=== PATIENT | male | born 1995 | race Caucasian/White ===

== ENCOUNTER 2017-10-07 12:37 | Emergency (ER) | payer SELFPAY ==
[2017-10-07 12:38] VITALS: BP 121/92; PULSE 90; RESP 16; TEMP 37.2; O2SAT 99; BMI 24.3
--- NOTE | 2017-10-07 14:43 | ED.DCSUM_ITS ---
- ER Visit Summary Date of Service: 10/07/17 Chief Complaint: Poison rain History of Present Illness: The patient is a 21 M he states he does not know when he gotten poison rain but he body and he itches. He states he wants the shot and does not want any of that antibiotic crap that we give. Physical Examination: Afebrile vital signs are stable. Patient has a faint rash on his arms and abdomen consistent with rhus dermatitis though he tells me he has it severely on his back I see no rash on the back Emergency Department Course and Treatment: Patient will be given a dose of Kenalog. He does not wish to hear any of the science. He does not wish to understand or hear anything other than what he thinks is the correct medical treatment. He will be discharged. Patient states that we are bunch of fucks because he is not getting the steroid shot that he got last year that lasts the entire year. It is the same medicine we looked that up. Impression: 1. Poison rain This note was generated with [employer] dictation software. It may contain incorrect words, spelling, and punctuation that were not noted in review of the chart prior to signing ED Disposition - Plan for ED Patient: Disposition: Home or Assisted Living Chief Complaint: Rash Instructions: ED Dermatitis Poison Rain Referrals: Care Physician,No Primary [Primary Care Provider] - Additional Instructions: The oils from poison rain last up to 12-14 days. The shot that you are requesting does not last that long. There is a high likelihood of the rash coming back and yes the oils can still be transmitted to your son no matter what treatment you get because the shot only mediates the immune response not removes the oils. So keep you son away from your rash. Antibiotics are not effective and they are not used in the treatment of poison rain since it is an allergic condition not a bacterial infection. There is no difference in effectiveness between oral steroids and the shot.
--- NOTE | 2017-10-07 14:57 | ED.RN ---
PT STATES HE ONLY WANTS THE SHOT THAT LASTS ONE FULL YEAR. ATTEMPTED TO EXPLAIN TO PT THAT THAT SHOT DOES NOT EXIST. PT BECOMES VERY AGGITATED. STATES YOU GUYS ARE A BUNCH OF MOTHERFUCKERS. THIS RN ATTEMPTED TO TELL PT THAT SHE WOULD GO TALK TO AND LOOK AT THE SHOT GIVEN LAST YEAR. PT BEGINS CALLING DR GARCIA NAMES AND YELLING AT THIS RN. DR SORIANO BACK TO ROOM. ATTEMPTS TO LET PT KNOW THAT THIS IS SAME SHOT PT RECIEVED LAST YEAR. PT CALLS A LIAR AND BEGINS SWEARING AND CALLING STAFF NAMES. PT THEN STORMS OUT OF DEPARTMENT
== END 2017-10-07 15:00 | disposition home or self-care (01) ==
PROVIDERS: Emergency Provider Emergency Medicine
DX: L23.7 Allergic contact dermatitis due to plants, except food (principal)
CPT/HCPCS: 99282

== ENCOUNTER 2024-06-16 08:41 | Emergency (ER) | payer OTHER, SELFPAY ==
[2024-06-16 08:41] VITALS: BP 135/115; PULSE 70; RESP 16; TEMP 35.9; O2SAT 100; BMI 28.6
--- NOTE | 2024-06-16 09:03 | EDS_ITS ---
HPI History of Present Illness Chief Complaint: Back Narrative Narrative: Chief complaint and HPI: 28-year-old male with no significant past medical history presents for evaluation of lower back pain. Onset 3 days ago after working outside at home. Patient states he has been taking Tylenol and Advil as needed for the pain. Pain not improving which is why he presents for evaluation. He denies any trauma to the back. Denies any fall. Denies numbness, weakness, urinary retention, stool or urinary incontinence, saddle anesthesia, recent invasive manipulation of the spine, intravenous drug use, or fever. Review of systems: See HPI Medications: As listed on the chart Allergies: As listed on the chart PFSH: Per chart Vital signs: As listed on the chart. Reviewed. Physical exam: Gen: A&O x3, NAD Head: Normocephalic, atraumatic Eyes: No sclera icterus, conjunctiva clear ENT: Moist mucous membranes Neck: Full range of motion, nontender CV: Regular rate Resp: Nonlabored respiration GI: Abd soft, non-distended, non-tender, no r/r/g Musc: No midline spinal tenderness, no bony step-off, no signs of trauma or infection, mild tenderness to palpation of the bilateral paraspinal musculature of the lower lumbar spine-muscles are tense more on the right compared to the left, full ROM of all extremities, negative straight leg test bilaterally, no deformity, strength +5/5 in all extremities, DTR +2/5, sensation intact, DP/PT pulses +2 Skin: Warm, dry Neuro: Alert, oriented, grossly intact, sensation intact Psych: Cooperative, appropriate mood and affect PFSH PFSH Medical History no medical history Home Medications ?Medication ?Instructions ?Recorded ?Last Taken ?Type cyclobenzaprine 5 mg tablet 5 mg PO TID PRN muscle spa sm 3 06/16/24 Unknown Rx days #9 tabs Allergy/AdvReac Type Severity Reaction Status Date / Time No Known Allergies Allergy Verified 06/16/24 08:43 Surgical History no surgical history Social History Smoking Status: Current every day smoker tobacco type: cigarettes EXAM Physical Exam Const Vital Signs: 06/16/24 08:41 Temperature 96.6 F L Temperature Source Temporal Pulse Rate 70 Respiratory Rate 16 Blood Pressure 135/115 H Blood Pressure Mean 121 Pulse Ox 100 Oxygen Delivery Method Room Air MDM MDM MDM Narrative Medical decision making narrative: 28-year-old male with no significant past medical history presents for evaluation of lower back pain. Patient presents for back pain. There has been no trauma. There is nothing to suggest any infectious etiology. There is no neurologic findings to suggest an acute cauda equina syndrome or infectious etiology. At this point I do not feel any emergent imaging such as x-rays or MRI are warranted. Patient symptoms will be treated with IM Toradol. Patient has not taken ibuprofen or Advil since yesterday. 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 He was given a prescription for muscle relaxers. Explained the side effects of muscle relaxers. No driving or operating heavy machinery while taking them. I did recommend and offer light duty at work however patient declined. States that he will get laid off if he is put on restrictions. Patient is offered work note for a couple days but declined. Strict return precautions. Follow-up with orthopedics and PCP. He confirmed understanding of the plan. Impression: 1. Low lumbar back strain Discharge Plan Triage Chief Complaint: Back ED Provider: Quinten Walker Dx/Rx/DC Orders Clinical Impression: Lumbar back sprain Instructions: Back Safety: Bending, Back Safety: Lifting, ED Back Sprain/Strain Prescriptions: New cyclobenzaprine 5 mg tablet 5 mg PO TID PRN (Reason: muscle spasm) 3 Days Qty: 9 0RF Primary Care Provider: Care Physician,No Primary Referrals: Desmond Bailey MD [Med Staff - Active Staff] - 3-5 Days Ariel Michel MD [Med Staff - Active Staff] - 3-5 Days Care Physician,No Primary [Primary Care Provider] - Activity Restrictions/Additional Instructions: Return back to the ED if symptoms change or worsen. Follow-up with orthopedic physician. Tylenol and ibuprofen as needed for pain. Heating pad for comfort as needed. You were given Toradol here in the emergency room, no ibuprofen for [address] or operate heavy machinery while taking muscle relaxers. Muscle relaxers can cause lightheadedness, falls, confusion, fatigue. Print Language: Arabic Disposition Disposition: Home, Self Care
[2024-06-16] MEDS: Ketorolac 30 MG/ML Syringe IM (09:13)
== END 2024-06-16 09:35 | disposition home or self-care (01) ==
LOC: ED 09:10
PROVIDERS: Emergency Provider Surgery; Visit Provider Surgery
DX: S39.012A Strain of muscle, fascia and tendon of lower back, initial encounter (principal); X58.XXXA Exposure to other specified factors, initial encounter; F17.210 Nicotine dependence, cigarettes, uncomplicated
CPT/HCPCS: 96372; 99282

== ENCOUNTER 2024-07-23 14:39 | Emergency (ER) | payer OTHER, SELFPAY ==
[2024-07-23 14:39] VITALS: BP 147/91; PULSE 100; RESP 16; TEMP 36.9; O2SAT 99; BMI 29.0
--- NOTE | 2024-07-23 14:50 | EDS_ITS ---
HPI History of Present Illness HPI Narrative: Patient presents with left hip pain that has been getting worse over the past 3 days. Patient states she bent over and felt a pop in his left hip. Patient dates the pain is sharp, aching, burning, and stabbing. Patient states it is worse with weightbearing and ambulation. Patient also states it is worse with sitting. Patient states he feels better when he pushes on his hip and when he lays flat. Patient admits to some numbness and tingling in his left lower leg. Patient denies any weakness. Patient denies any bowel or bladder changes. Patient denies any saddle anesthesia. Chief Complaint: Lower Extremity Injury Informant: patient Onset/Context/Timing Onset: Days (3) Context: Sudden Onset Timing: Continuous Quality of Pain: Sharp, Aching, Burning and Stabbing Location: Left hip Worsened by: Walking, sitting Relieved by: Pressure, laying flat Associated Symptoms Associated Symptoms: Positive for Parasthesia; Negative for Weakness or Loss of Funtion PFSH PFSH Medical History no medical history no medical history Home Medications ?Medication ?Instructions ?Recorded ?Last Taken ?Type cyclobenzaprine 5 mg tablet 5 mg PO TID PRN muscle spa sm 3 06/16/24 Unknown Rx days #9 tabs naproxen 500 mg tablet 500 mg PO BID PRN #20 tabs 0 07/23/24 Unknown Rx Allergy/AdvReac Type Severity Reaction Status Date / Time No Known Allergies Allergy Verified 07/23/24 14:42 Surgical History no surgical history no surgical history Social History Smoking Status: Current some day smoker tobacco type: cigarettes ROS ROS ED Constitutional Constitutional ED: Denies chills or fever(s) Eyes Eyes: Denies blurry vision or change in vision ENT ENT ED: Denies rhinorrhea or sore throat Cardiovascular Cardiovascular: Denies chest pain or palpitations Respiratory/Chest Respiratory/Chest: Denies cough or dyspnea Gastrointestinal Gastrointestinal: Denies nausea or vomiting Genitourinary Genitourinary ED: Denies dysuria or hematuria Musculoskeletal Musculoskeletal: Reports back pain; Denies neck pain Integumentary Denies abscess or rash Neurologic Neurologic: Denies headache(s) or weakness Allergic/Immunologic Allergic/Immunologic ED: Denies mouth swelling or urticaria EXAM Physical Exam Const Vital Signs: 07/23/24 14:39 Temperature 98.5 F Temperature Source Oral Pulse Rate 100 Respiratory Rate 16 Blood Pressure 147/91 H Blood Pressure Mean 109 Pulse Ox 99 Oxygen Delivery Method Room Air Positive well nourished and well developed Constitutional Narrative: BMI is 29.0 General Appearance ED: well developed and NAD HEENT Reports moist mucous membranes Eyes PERRL Neck full ROM and supple Back/Spine Back/Spine Narrative: There is mild tenderness of the left lower lumbar paraspinal muscles. There is mild tenderness over the sciatic notch. There is no bony crepitance or step- off. There is no edema or ecchymosis. Range of motion was somewhat limited in all motions of the lumbar spine secondary to pain. Extremity Extremity Narrative: There is diffuse tenderness over the left hip. There is no deformity noted. Range of motion is limited in all motions of the left hip secondary to pain. Neuro oriented x3, CN's II-XII intact bilaterally, moves all extremities and no sensory deficits noted Sensorium / Orientation: alert Motor Exam: strength 5/5 throughout Psych mental status grossly normal MDM MDM MDM Narrative Medical decision making narrative: Differential diagnosis includes occult fracture, sciatica, muscle strain, and arthritis. X-rays of the left hip will be obtained to assess for occult fracture and degenerative arthritis. History & Record Review Additional record(s) reviewed:: Prior ED visit Radiography X-Ray: Left Hip, Read by ED Physician and Read by Radiologist Diagnostic Testing: Clinical Impression(s) from Imaging Studies Hip/Pelvis X-Ray 07/23/24 15:40 IMPRESSION: NO ACUTE FRACTURE OR DISLOCATION. If acute hip fracture is suspected after a fall or minor trauma and initial radiographs are negative then MRI of the pelvis and affected hip without IV contrast or CT of the pelvis and hips without IV contrast is usually appropriate as the next imaging study. (ACR Appropriateness Criteria: Acute Hip Pain-Suspected Fracture 2018) Reading Location: [facility] X-rays of the left hip were obtained. There are 3 views. On my independent interpretation, there is no acute fracture or dislocation. There are no degenerative changes noted. Radiologist also interpreted the x-rays and agrees. Treatment and Re-Evaluation Narrative: Smoking cessation was discussed. Patient was advised of his findings. Patient was advised that this could be sciatica pain. Patient was given prescription for Naprosyn. Patient was instructed to use ice to the area. Patient was instructed to return if worse in any way. Patient was instructed to follow-up with his primary care physician in 5 to 7 days. Patient and spouse understood and were agreeable with the plan. All questions were answered. Discharge Plan Triage Chief Complaint: Lower Extremity Injury ED Provider: Sharad Luna Dx/Rx/DC Orders Clinical Impression: Muscle strain of left hip, Sciatica of left side Instructions: ED Hip Strain Prescriptions: New naproxen 500 mg tablet 500 mg PO BID PRN Qty: 20 0RF No Action cyclobenzaprine 5 mg tablet 5 mg PO TID PRN (Reason: muscle spasm) 3 Days Qty: 9 0RF Primary Care Provider: Care Physician,No Primary Referrals: Care Physician,No Primary [Primary Care Provider] - Balbina Daniels SAWMILLING OPERATOR-C [Non-Staff] - 5-7 Days Print Language: Azeri Disposition Disposition: Home, Self Care Discharge Date/Time: 07/23/24 16:15
--- NOTE | 2024-07-23 14:53 | ED.RN ---
WEDNESDAY PT WAS BENDING AND HEARD AN AUDIBLE POP SOUND WITH PAIN FOLLOWING IT. HAS BEEN IN PAIN SINCE. LAYING FLAT HURTS OR APPLYING PRESSURE.
[2024-07-23] MEDS: Ketorolac 60 MG/2 ML Vial IM (15:36)
--- NOTE | 2024-07-23 15:40 | RAD_ITS ---
PROCEDURE: HIP, UNI W/ PELVIS 2-3 VIEWS 07/23/2024 REASON FOR EXAM: INJURY/PAIN TECHNIQUE: 3 view(s) of the left hip including the pelvis. COMPARISON: None FINDINGS: Bones: No acute fracture. Joints: Normal alignment. Soft tissues: No soft tissue abnormality. Other: RAD/HIP, UNI W/ Pelvis 2-3 Views IMPRESSION: NO ACUTE FRACTURE OR DISLOCATION. If acute hip fracture is suspected after a fa ll or minor trauma and initial radiographs are negative then MRI of the pelvis and affected hip without IV contrast or CT of t he pelvis and hips without IV contrast is usually appropriate as the next imaging study. (ACR Appropriateness Criteria: Acute Hip Pain-Suspected Fracture 2018) Reading Location: [facility]
== END 2024-07-23 16:15 | disposition home or self-care (01) ==
PROVIDERS: Emergency Provider Emergency Medicine; Visit Provider Emergency Medicine
DX: S76.012A Strain of muscle, fascia and tendon of left hip, initial encounter (principal); M54.32 Sciatica, left side; X50.1XXA Overexertion from prolonged static or awkward postures, initial encounter; F17.210 Nicotine dependence, cigarettes, uncomplicated
CPT/HCPCS: 73502; 96372; 99282